=== PATIENT | male | born 1955 | race Caucasian/White ===

== ENCOUNTER → 2020-04-06 09:35 | Outpatient (CLI) | payer MEDICARE ==
[2009-11-17 11:53] VITALS: BMI 28.5
== END | disposition home or self-care (01) ==
LOC: D.CT 09:35
PROVIDERS: ATTEND Internal Medicine Cardiovascular Disease
DX: I70.213 Atherosclerosis of native arteries of extremities with intermittent claudication, bilateral legs (principal)

== ENCOUNTER 2020-05-06 06:35 | Outpatient (CLI) | payer MEDICARE ==
[~2020-05-06] VITALS: Ht 185.4 cm; Wt 97.7 kg
--- NOTE | ~2020-05-06 | HEMODYNAMI ---
PATIENT:ALIX BEY MEDICAL RECORD: [id number] : 53 LOCATION:[facility] ADMISSION DATE: 05/06/20 Generatedon:05/06/202011:38 Patient name: ALIX BEY Patient #: [id number] SSN: DO B: 1955 Date of study: 05/06/2020 Page: Of Hemodynamic Procedure Report Patient Data Patient Demographics Procedure consent was obtained First Name: ALIX Gender: Male Last Name: MAIDA : 1955 Middle Initial: L Age: 64 year(s) Patient #: [id number] Race: Unknown Additional ID: [id number] Contact details Address: [address] [place] [address] ROAD State: [place] City: [place] Zip code: [address] Past Medical History Allergies: No known allergies Admission Admission Data Admission Date: 05/06/2020 Admission Time: 6:35 Procedure Procedure Types Cath Procedure Peripheral Cath Diagnostic Procedure Abd/Extremity Extremities Bilat Lower Extremity Procedure Description Procedure Date Procedure Date: 05/06/2020 Procedure Start Time: 9:38 Procedure Staff Name Function Stanford Joseph MD Performing Physician LANI ORR RT Monitor Horacio Oscar RT Scrub Aster ROBERTS RN Nurse Procedure Data Cath Procedure Fluoroscopy Diagnostic fluoroscopy Total fluoroscopy Time: time: 32.4 min 32.4 min Diagnostic fluoroscopy Total fluoroscopy dose: dose: 2182 mGy 2182 mGy Contrast Material Contrast Material Type Amount (ml) Isovue 300 55 Entry Location Entry Primary Successful Side Size Upsize Upsize Entry Closure Succes sful Closure Location (Fr) 1 (Fr) 2 (Fr) Remarks Device Remarks Femoral Left 5 Fr 6 Fr 6 Fr Exoseal artery Long Short Diagnostic catheters Device Type Used For End Catheter Placement DIAGNOSTIC IMT 5Fr Catheter ([id number]) Procedure Medications Medication Administration Route Dosage Lidocaine 1% added to field 20 Heparin Flush Bag added to field 2 bags (1000units/500ml NS) Heparin Flush Bag added to field 1 bags (1000units/500ml NS) Fentanyl I.V. 50 mcg Versed I.V. 1 mg Fentanyl I.V. 25 mcg Fentanyl I.V. 25 mcg Versed I.V. 0.5 mg Versed I.V. 0.5 mg Heparin Bolus I.V. 5000 units Fentanyl I.V. 25 mcg Versed I.V. 0.5 mg Heparin Bolus I.V. 2000 units Fentanyl I.V. 25 mcg Hemodynamics Rest Heart Rate: 58 (bpm) Snapshots Pre Cath Intra NCS Post Cath Vital Signs Time Heart Resp SPO2 etCO2 NIBP (mmHg) Rhythm Pain Status Sedation Rate (ipm) (%) (mmHg) Level (bpm) 9:24:11 59 17 100 32.4 161/99(135) NSR 0 (11) , No 9(A) pain 9:29:10 58 13 100 33.9 Auto NIBP NSR 0 (11) , No 9(A) off pain 9:34:10 61 17 99 34.6 Auto NIBP NSR 0 (11) , No 9(A) off pain 9:37:08 71 17 99 33.1 145/90(124) NSR 2 (11) , 9(A) Uncomfortable 9:42:07 60 13 98 33.9 Auto NIBP NSR 0 (11) , No 8(A) off pain 9:44:24 62 11 98 27.1 139/97(128) NSR 0 (11) , No 8(A) pain 9:49:23 61 13 99 33.1 Auto NIBP NSR 0 (11) , No 8(A) off pain 9:51:44 59 12 99 31.6 130/91(117) NSR 0 (11) , No 8(A) pain 9:55:52 63 12 98 33.9 138/92(105) NSR 0 (11) , No 8(A) pain 10:00:04 63 11 99 33.9 133/91(107) NSR 0 (11) , No 8(A) pain 10:04:16 60 13 98 33.1 135/85(113) NSR 0 (11) , No 8(A) pain 10:08:28 59 13 99 33.9 131/85(113) NSR 0 (11) , No 8(A) pain 10:12:40 59 13 99 33.9 136/81(106) NSR 0 (11) , No 8(A) pain 10:16:50 60 14 98 33.2 132/89(117) NSR 0 (11) , No 8(A) pain 10:21:00 59 13 98 30.9 138/89(109) NSR 0 (11) , No 8(A) pain 10:25:12 60 12 98 16.5 136/87(115) NSR 0 (11) , No 9(A) pain 10:29:23 57 14 99 34.6 135/86(113) NSR 0 (11) , No 8(A) pain 10:33:38 60 15 98 25.6 119/80(100) NSR 0 (11) , No 8(A) pain 10:37:45 59 14 99 33.1 128/79(106) NSR 0 (11) , No 8(A) pain 10:41:55 59 13 99 12 128/85(101) NSR 0 (11) , No 8(A) pain 10:46:05 60 16 99 26.4 131/81(115) NSR 0 (11) , No 8(A) pain 10:50:17 58 13 99 33.9 131/81(109) NSR 0 (11) , No 8(A) pain 10:54:27 58 13 99 9.8 135/84(108) NSR 0 (11) , No 8(A) pain 10:58:37 62 12 99 36.2 149/87(119) NSR 0 (11) , No 9(A) pain 11:02:51 57 13 99 35.4 158/105(143) NSR 0 (11) , No 9(A) pain 11:07:11 58 13 99 33.9 152/86(113) NSR 0 (11) , No 8(A) pain 11:11:29 58 12 99 11.3 138/85(106) NSR 2 (11) , 8(A) Uncomfortable 11:16:28 56 13 99 34.7 Measuring NSR 0 (11) , No 8(A) pain 11:16:34 56 13 99 34.7 149/89(132) NSR 0 (11) , No 8(A) pain 11:20:50 57 12 98 39.9 145/85(113) NSR 0 (11) , No 8(A) pain 11:25:04 59 12 98 39.9 150/92(121) NSR 0 (11) , No 8(A) pain 11:30:03 61 10 99 37.7 Measuring NSR 0 (11) , No 8(A) pain 11:30:16 60 10 100 36.9 153/94(115) NSR 0 (11) , No 8(A) pain 11:34:31 58 10 99 42.2 159/97(126) NSR 0 (11) , No 9(A) pain Medications Time Medication Route Dose Verified Delivered Reason Notes Effectiveness by by 9:23:46 Lidocaine 1% added 20ml Stanford Coyne for local to vial Jake Joseph MD anesthetic field JORDAN 9:23:55 Heparin Flush added 2 Stanford Coyne used for Bag to bags Jake Joseph MD procedure (1000units/500ml field JORDAN NS) 9:23:57 Heparin Flush added 1 Stanford Coyne used for Bag to bags Jake Joseph MD procedure (1000units/500ml field JORDAN NS) 9:32:47 Fentanyl I.V. 50 Stanford Ayersr for sedation mcg ALEJANDRA Joseph MD RN 9:32:55 Versed I.V. 1 mg Stanford Ayersr for sedation ALEJANDRA Joseph MD RN 9:35:06 Versed I.V. 0.5 Stanford Ayersr for sedation mg ALEJANDRA Joseph MD RN 9:35:39 Fentanyl I.V. 25 Stanford Ayersr for sedation mcg ALEJANDRA Joseph MD RN 9:38:57 Fentanyl I.V. 25 Stanford Ayersr for sedation mcg ALEJANDRA Joseph MD RN 10:27:02 Versed I.V. 0.5 Stanford Minner for sedation mg ALEJANDRA Joseph MD RN 10:27:24 Heparin Bolus I.V. 5000 Stanford Rodarte for units ALEJANDRA Joseph MD RN 10:59:57 Fentanyl I.V. 25 Stanford Ayersr for sedation mcg ALEJANDRA Joseph MD RN 11:00:04 Versed I.V. 0.5 Stanford Ayersr for sedation mg ALEJANDRA Joseph MD RN 11:02:30 Heparin Bolus I.V. 2000 Stanford Rodarte for units ALEJANDRA Joseph MD RN 11:14:08 Fentanyl I.V. 25 Stanford Rodarte for sedation mcg ALEJANDRA Joseph MD wildlife ecologist Log Time Note 8:57:31 Use device set IR Diagnostic 8:57:32 ACIST Syringe (70189) opened to sterile field. 8:57:33 ACIST Hand Control (14001) opened to sterile field. 8:57:34 ACIST Manifold (94485) opened to sterile field. 8:57:34 Bag Decanter (2002S) opened to sterile field. 8:57:35 Sterile Angiographic Pack opened to sterile field. 8:57:35 Tegaderm 4 x 4 (1626W) opened to sterile field. 8:59:45 Angiodynamics Omniflush 5Fr 65cm ([id number]) opened to sterile field. 8:59:45 GLIDE CATHETER 5FR ANGLED 65cm (CG507) opened to sterile field. 8:59:46 TORQUE DEVICE PLASTIC .038 ( TD01) opened to sterile field. 8:59:46 GLIDE WIRE ANGLE 260cm (SR4306) opened to sterile field. 8:59:46 CHOICE PT Extra Support J 300cm guide wire ([id number]) opened to steril e field. 8:59:47 SHEATH 5FR [place] (VCA823) opened to sterile field. 8:59:47 SHEATH 6FR [place] (RSR01) opened to sterile field. 8:59:48 TUBING High Pressure Extension (IABP) opened to sterile field. 8:59:48 DOC .035 wire (A19047) opened to sterile field. 8:59:49 FRITZ 260 wire (R10924) opened to sterile field. 8:59:50 MICROPUNCTURE 4FR [place] (V98133) opened to sterile field. 9:00:07 - 9:00:11 Aster ROBERTS RN sent for patient. Start room use. 9:00:12 Time tracking: Regular hours (M-F 7:00 - 5:00) 9:00:16 Plan of Care:Hemodynamics will remain stable., Cardiac rhythm will remain stable., Comfort level will be maintained., Respiratory function will remain adequate., Patient/ family verbilizes understanding of procedure., Procedure tolerated without complication., Recovers from procedure without complications.. 9:00:29 Patient received from Outpatients to IR Alert and oriented. Tansferred to table in Supine position. 9:00:30 Signed procedure consent form obtained from patient. 9:00:31 Warm blankets applied, and kirk hugger turned on for patient comfort. 9:00:32 Correct patient and procedure confirmed by team. 9:00:32 ECG and BP/O2 sat monitors applied to patient. 9:00:34 - 9:00:39 H&P Date Dictated: 05/06/2020 H&P Addendum completed by physician on day of procedure. (MUST COMPLETE FOR ALL OUTPATIENTS). 9:00:40 Pre-procedure instructions explained to patient. 9:00:41 Pre-op teaching completed and patient verbalized understanding. 9:01:09 Family in waiting room. 9:01:11 Patient NPO since Midnight. 9:01:17 Patient allergic to No known allergies 9:09:05 Is the patient allergic to Iodine/contrast media? No. 9:09:07 Is patient on blood thinner?Yes 9:09:10 ACC The patient was administered the following blood thiners within the last 24 hours: ACCAspirin 9:09:14 Patient diabetic? No. 9:09:16 - 9:09:18 ----Pre-sedation anethsthesia assessment.---- 9:09:20 Previous problem with sedation/anesthesia? No ? 9:10:01 Snore? No 9:10:02 Sleep apnea? No 9:10:03 Deviated septum? No 9:10:05 Opens mouth fully? Yes 9:10:06 Sticks out tongue? Yes 9:10:08 Airway obstruction? No ? 9:10:17 Dentures? No ? 9:10:19 - 9:10:23 Pre procedure: right dorsailis pedis pulse Doppler 9:10:25 Pre procedure: left dorsailis pedis pulse Doppler 9:10:28 Pre procedure: right posterior tibial pulse Doppler 9:10:31 Pre procedure: left posterior tibial pulse Doppler 9:10:49 IV patent on arrival in left hand with 0.9% NaCl at [facility]. 9:11:03 Left groin area was prepped with chlora-prep and draped in sterile fashion 9:11:04 Alarms reviewed by Tiffanie Moore 9:11:05 Sharps counted by scrub and verified by Dominic 9:11:06 - 9:23:01 Vital chart was started 9:23:26 Baseline sample Acquired. 9:23:29 Full Disclosure recording started 9:23:31 - 9:23:46 Lidocaine 1% 20ml vial added to field was administered by Stanford Joseph MD; for local anesthetic; Verbal order read back and verified. 9:23:55 Heparin Flush Bag (1000units/500ml NS) 2 bags added to field was administered by Stanford Joseph MD; used for procedure; Verbal order read back and verified. 9:23:57 Heparin Flush Bag (1000units/500ml NS) 1 bags added to field was administered by Stanford Joseph MD; used for procedure; Verbal order read back and verified. 9:28:00 CXI SUPPORT .035 135 CM STR catheter (E84070) opened to sterile field. 9:29:25 Physician arrived 9:31:16 --------ALL STOP TIME OUT------ 9:31:17 Final Timeout: patient, procedure, and site verified with staff and physician. All members of the team are in agreement. 9:31:19 Left groin site verified by team. 9:31:23 Fire Safety Assessment: A--An alcohol-based skin anteseptic being used preoperatively., C--Open oxygen or nitrous oxide is being used. 9:31:26 2) 60-89 Mildly reduced kidney function, and other findings (as for stage 1) point to kidney disease. 9:31:43 Maximum allowable contrast dose (3.7 X eGFR X 0.75)177.6 ml. 9:31:48 Sedation plan: IV Moderate Sedation Medication:Versed, Fentanyl 9:32:47 Fentanyl 50 mcg I.V. was administered by Aster ROBERTS RN; for sedation; Verbal order read back and verified. 9:32:55 Versed 1 mg I.V. was administered by Aster ROBERTS RN; for sedation; Verbal order read back and verified. 9:35:04 Procedure started. 9:35:06 Versed 0.5 mg I.V. was administered by Aster ROBERTS RN; for sedation; Verbal order read back and verified. 9:35:39 Fentanyl 25 mcg I.V. was administered by Aster ROBERTS RN; for sedation; Verbal order read back and verified. 9:37:32 NITINOL .018 80cm wire (S588645) opened to sterile field. 9:38:35 Local anesthetic to left femerol artery with Lidocaine 1% by Stanford Joseph MD.INITIAL ACCESS ONLY 9:38:57 Fentanyl 25 mcg I.V. was administered by Aster ROBERTS RN; for sedation; Verbal order read back and verified. 9:57:08 Access obtained with 4Fr micropunture. 9:59:40 A 5 Fr sheath was inserted into the Left Femoral artery 10:05:44 ROADRUNNER .035 260 glide wire (J91876) opened to sterile field. 10:06:29 CXI Catheter 90cm (Y18980) opened to sterile field. 10:07:46 A DIAGNOSTIC IMT 5Fr Catheter ([id number]) was opened to sterile field. 10:18:23 GLIDE CATHETER 5FR COBRA 100cm (CG503) opened to sterile field. 10:27:02 Versed 0.5 mg I.V. was administered by Aster ROBERTS RN; for sedation; Verbal order read back and verified. 10:27:24 Heparin Bolus 5000 units I.V. was administered by Aster ROBERTS RN; fo r anticoagulation; Verbal order read back and verified. 10:49:00 Trailblazer 0.035 90cm catheter (ASC-035-090) opened to sterile field. 10:54:01 Sheath upsized to a 6 Fr Long. 10:58:47 INFLATOR BasixTOUCH (QV0127) opened to sterile field. 10:59:57 Fentanyl 25 mcg I.V. was administered by Aster ROBERTS RN; for sedation; Verbal order read back and verified. 11:00:04 Versed 0.5 mg I.V. was administered by Aster ROBERTS RN; for sedation; Verbal order read back and verified. 11:01:41 Inflate balloon Inflation number: 1 A [place] 6 x 100 x 135 Balloon ([id number]) was prepped and advanced across the Undefined1 , then inflated. 11:02:30 Heparin Bolus 2000 units I.V. was administered by Aster ROBERTS RN; fo r anticoagulation; Verbal order read back and verified. 11:08:43 EVERFLEX 8 x 100 Stent ([id number]) was deployed across Undefined1 . 11:14:08 Fentanyl 25 mcg I.V. was administered by Aster ROBERTS RN; for sedation; Verbal order read back and verified. 11:16:45 Inflate balloon Inflation number: 1 A [place] 6 x 4 x 135 Balloon ([id number]) was prepped and advanced across the Undefined2 , then inflated . 11:27:23 Sheath removed intact; hemostasis achieved with Exoseal to the Left Femoral artery. 11:27:23 Sheath upsized to a 6 Fr Short. 11:30:58 Procedure ended.(Physican Out) 11:35:18 Fluoroscopy time 32.40 minutes. 11:35:23 Fluoroscopy dose: 2182 mGy 11:35:23 Flurop Dose total: 2182 11:35:27 Contrast amount:Isovue 300 55ml. 11:35:29 Sharps counted by scrub and verified by R.N. 11:35:31 Insertion/operative site no bleeding no hematoma. 11:35:35 Post-op/insertion site Left Femoral artery dressed using a 4 x 4 and Tegaderm. 11:35:37 Procedure and supply charges have been captured, reviewed, submitted an d are correct. 11:37:32 Vital chart was stopped 11:37:34 See physician's report for complete and final results. 11:37:36 Report given to Outpatients. 11:37:38 End room use (Document Last) Intervention Summary Intervention Notes Time ActionType Lesion and Equipment Used Action# Pressure Duration Attributes 11:01:41 Inflate Undefined1 Evercross 6 x 1 0 00:00 balloon 100 x 135 Balloon ([id number]) 11:08:43 Deploy self Undefined1 EVERFLEX 8 x 1 expanding 100 Stent stent ([id number]) 11:16:45 Inflate Undefined2 Evercross 6 x 4 1 0 00:00 balloon x 135 Balloon ([id number]) Device Usage Item Name Manufacture Quantity Catalog Number Hospital Part Curr ent Minimal Lot# / Charge Number Stock Stock Serial# Code ACIST Syringe Acist Medical 1 60398 152406 194193 0765 75 20 (92549) Systems Inc ACIST Hand Acist Medical 1 89368 998512 998366 2646 06 5 Control (07279) Systems Inc ACIST Manifold Acist Medical 1 13845 637968 544398 6793 22 5 (48289) Systems Inc Bag Decanter Microtek 1 2001S 210755 16577 9841 11 5 () Medical Inc. Sterile Cardinal 1 [id number] 705635 6579 03 5 Angiographic Health Pack Tegaderm 4 x 4 3M 1 1626W 999139 104437 7940 08 5 (1626W) Angiodynamics Angiodynamics 1 64178084 790580 065939 2115 82 5 Omniflush 5Fr 65cm (74221537) GLIDE CATHETER Terumo 1 CG507 452813 1627 92 5 5FR ANGLED 65cm (CG507) TORQUE DEVICE [place] 1 TD01 885472 361164 2307 78 5 PLASTIC .038 ( Scientific TD01) GLIDE WIRE Terumo 1 BP7055 706109 357075 4559 67 5 ANGLE 260cm (NO7037) CHOICE PT Extra [place] 1 [id number] 685013 702128 7244 80 5 Support J 300cm Scientific guide wire (6335155D7) SHEATH 5FR Terumo 1 DFH905 886255 443221 7730 82 5 [place] (INI772) SHEATH 6FR Terumo 1 RSR01 266214 11992 9994 82 5 Destination (RSR01) TUBING [facility] 1 [id number] 786299 600836 4316 85 5 Pressure Extension (IABP) DOC .035 wire [facility] 1 O63163 267891 7273 42 5 (E95092) FRITZ 260 wire [facility] 1 R35849 495557 26705 9994 13 5 (Q43288) MICROPUNCTURE [facility] 1 B19416 269858 185428 3351 66 5 4FR [employer] (N32166) CXI SUPPORT [facility] 1 P77248 976671 985617 0296 58 5 .035 135 CM STR catheter (Q59166) NITINOL .018 Medtronic 1 W046524 629824 9829 67 5 80cm wire (A873595) ROADRUNNER .035 [facility] 1 F82736 090753 018430 7245 32 5 260 glide wire (P85717) CXI Catheter [facility] 1 X38368 442084 234570 6419 72 5 90cm (T24419) DIAGNOSTIC IMT [place] 1 [id number] 810432 183951 2917 6 5 5Fr Catheter Scientific (694947728) GLIDE CATHETER Terumo 1 CG503 898735 4584 81 5 5FR COBRA 100cm (CG503) Trailblazer Medtronic 1 ASC-035-090 995941 7414421 3530 83 5 G058989 0.035 90cm catheter (ASC-035-090) INFLATOR [facility] Medical 1 MQ1538 329046 082580 2924 02 5 BasixTOUCH (AD2002) Ever[place] 6 x Medtronic 1 [id number] 568466 000158 8223 89 5 100 x 135 Balloon ([id number]) EVERFLEX 8 x Medtronic 1 UDR29-53-909-635 698555 192312 3313 97 5 R958862 100 Stent X196155 ([id number]) [place] 6 x 4 Medtronic 1 [id number] 507444 822830 4768 80 5 x 135 Balloon ([id number]) Signature Audit [place] Stage Time Signature Unsigned Intra-Procedure 05/06/2020 LANI ORR RT 11:38:01 AM (R) [id number] [place] [address]
[2020-05-06 07:04] LABS: HEMATOCRIT 48.2 % (42.0-54.0); HEMOGLOBIN 16.6 g/dL (13.5-17.5); LYMPHOCYTES 29.7 % (15-50); MCH 30.2 pg (26.0-34.0); MCHC 34.4 g/dL (31.0-37.0); MCV 87.6 fL (80.0-100.0); MEAN PLATELET VOLUME 9.9 fL (7.4-10.4); NEUTROPHILS 62.4 % (40-80); RDW 14.5 % (11.5-14.5); WBC 9.7 10x3/uL (4.8-10.8)
[2020-05-06 07:16] LABS: PLATELET COUNT 188 10x3/uL (130-400)
[2020-05-06 07:25] LABS: ANION GAP 10.6 mmol/L (8-16); CALCIUM 8.9 mg/dL (8.5-10.1); CARBON DIOXIDE 28.6 mmol/L (21.0-32.0); CREATININE - SERUM 1.2 mg/dL (0.6-1.3); POTASSIUM - SERUM 4.2 mmol/L (3.5-5.1)
[2020-05-06] MEDS ORDERED: PRINIVIL20 MG PO (07:55)
[2020-05-06] MEDS ORDERED: BAYER CHEWABLE81 MG PO (07:56)
[2020-05-06] MEDS ORDERED: NORVASC10 MG PO (07:56)
[2020-05-06 07:57] LABS: APTT 25.6 SECONDS (22.8-39.4); INR 0.98 (0.85-1.17); PROTIME 12.9 SECONDS (11.6-15.0)
[2020-05-06] MEDS ORDERED: MULTIVITAMIN (07:57)
[2020-05-06] MEDS ORDERED: TYLENOL PM1 TAB PO (07:57)
[2020-05-06 08:08] VITALS: Ht 185.4 cm; Wt 97.7 kg
--- NOTE | 2020-05-06 13:24 | NUR ---
1150 ARRIVED TO ROOM AND DRESSING TO LEFT GROIN CDI AREA SOFT. DOPPLER PULSES. STRONGER ON LEFT SIDE THAN RIGHT. AT BEDSIDE. C/O ROOM TOO HOT. PROVIDED A BOX FAN AND WATER. LUNCH TRAY ORDERED FOR PT. ORDERS NOTED AND PT NOT IN ANY PAIN
--- NOTE | 2020-05-06 15:35 | NUR ---
1250 FREQ VS DONE AND PT RESTING WELL. GOOD APPITITE. HUNG SECONG BAG OF FLUIDS AND ENCOURGED PO FLUIDS FOR 24HR. INSTRUCTIONS GIVEN AND DR DOUGHERTY CAME TO SEE PT WITH INSTRUCTIONS ON PLAVIX
--- NOTE | 2020-05-06 15:37 | NUR ---
1500 PT IV REMOVED AND INSTRUCTIONS GIVEN AND D/C HOME WITH
--- NOTE | 2020-05-06 15:37 | NUR ---
1400 SITE TO GROIN SOFT AND DOPPLER PULSES STRONGER
== END 2020-05-06 15:20 | disposition home or self-care (01) ==
LOC: D.SP 06:35 → D.RAD 09:00 → D.SP 09:00
PROVIDERS: ATTEND General Practice
DX: I70.211 Atherosclerosis of native arteries of extremities with intermittent claudication, right leg (principal); I10 Essential (primary) hypertension; Z72.0 Tobacco use

== ENCOUNTER → 2020-05-27 09:50 | Outpatient (CLI) | payer MEDICARE ==
[2020-05-06 08:08] VITALS: BMI 28.4
[~2020-05-27 09:50] MED LIST: BAYER CHEWABLE81 MG PO; MULTIVITAMIN; NORVASC10 MG PO; PRINIVIL20 MG PO; TYLENOL PM1 TAB PO
== END | disposition home or self-care (01) ==
LOC: D.CT 09:50
PROVIDERS: ATTEND General Practice
DX: I70.213 Atherosclerosis of native arteries of extremities with intermittent claudication, bilateral legs (principal)

== ENCOUNTER 2020-06-16 06:30 | Outpatient (CLI) | payer MEDICARE ==
[~2020-06-16] VITALS: Ht 185.4 cm; Wt 99.1 kg
--- NOTE | ~2020-06-16 | HEMODYNAMI ---
PATIENT:ALIX BEY MEDICAL RECORD: [id number] : 53 LOCATION:[facility] ADMISSION DATE: 06/16/20 Generatedon:06/16/202010:24 Patient name: ALIX BEY Patient #: [id number] SSN: DO B: 1955 Date of study: 06/16/2020 Page: Of Hemodynamic Procedure Report Patient Data Patient Demographics Procedure consent was obtained First Name: ALIX Gender: Male Last Name: MAIDA : 1955 Middle Initial: L Age: 64 year(s) Patient #: [id number] Race: Unknown Additional ID: [id number] Contact details Address: [address] [place] [address] ROAD State: [place] City: [place] Zip code: [address] Past Medical History Allergies: No known allergies Admission Admission Data Admission Date: 06/16/2020 Admission Time: 6:30 Procedure Procedure Types Cath Procedure Peripheral Cath Diagnostic Procedure Abd/Extremity Extremities Bilat Lower Extremity Procedure Description Procedure Date Procedure Date: 06/16/2020 Procedure Start Time: 9:40 Procedure End Time: 10:24 Procedure Staff Name Function Stanford Joseph MD Performing Physician LANI ORR RT Monitor Horacio Oscar RT Scrub Aster ROBERTS RN Nurse Jocelyn Cespedes RN Nurse Procedure Data Cath Procedure Fluoroscopy Diagnostic fluoroscopy Total fluoroscopy Time: 8.3 time: 8.3 min min Diagnostic fluoroscopy Total fluoroscopy dose: 436 dose: 436 mGy mGy Contrast Material Contrast Material Type Amount (ml) Isovue 300 45 Entry Location Entry Primary Successful Side Size Upsize Upsize Entry Closure Succes sful Closure Location (Fr) 1 (Fr) 2 (Fr) Remarks Device Remarks Femoral Left 5 Fr Exoseal artery Procedure Medications Medication Administration Route Dosage Lidocaine 1% added to field 20 Heparin Flush Bag added to field 2 bags (1000units/500ml NS) Heparin Flush Bag added to field 2 bags (1000units/500ml NS) Fentanyl I.V. 50 mcg Versed I.V. 1 mg Fentanyl I.V. 25 mcg Versed I.V. 0.5 mg Fentanyl I.V. 25 mcg Versed I.V. 0.5 mg Hemodynamics Rest Heart Rate: 61 (bpm) Snapshots Pre Cath Intra NCS Post Cath Vital Signs Time Heart Resp SPO2 etCO2 NIBP (mmHg) Rhythm Pain Sedation Rate (ipm) (%) (mmHg) Status Level (bpm) 9:12:36 58 14 100 32.9 Measuring NSR 0 (11) 9(A) , No pain 9:13:09 57 19 100 31.4 162/93(138) NSR 0 (11) 9(A) , No pain 9:17:29 57 18 100 31.4 173/98(144) NSR 0 (11) 9(A) , No pain 9:21:49 57 13 99 32.2 154/95(138) NSR 0 (11) 9(A) , No pain 9:26:03 57 14 98 32.9 159/94(133) NSR 0 (11) 9(A) , No pain 9:30:23 56 16 98 32.2 146/91(129) NSR 0 (11) 9(A) , No pain 9:34:35 58 16 98 31.4 152/96(140) NSR 0 (11) 9(A) , No pain 9:38:51 60 21 98 32.2 155/98(128) NSR 0 (11) 9(A) , No pain 9:43:07 63 16 96 32.9 145/112(124) NSR 0 (11) 8(A) , No pain 9:47:21 58 13 97 29.2 149/91(122) NSR 0 (11) 8(A) , No pain 9:51:37 59 12 96 0 151/90(126) NSR 0 (11) 8(A) , No pain 9:55:53 61 11 97 10.4 148/94(137) NSR 0 (11) 8(A) , No pain 10:00:11 58 12 97 26.2 140/83(113) NSR 0 (11) 8(A) , No pain 10:04:23 59 13 97 34.4 149/88(121) NSR 0 (11) 8(A) , No pain 10:08:39 57 14 96 36.6 145/88(118) NSR 0 (11) 8(A) , No pain 10:12:53 59 13 96 36.7 138/93(121) NSR 0 (11) 8(A) , No pain 10:17:52 57 8 99 34.4 Measuring NSR 0 (11) 8(A) , No pain 10:18:05 58 8 98 35.9 138/87(119) NSR 0 (11) 8(A) , No pain 10:22:19 56 13 97 35.2 137/81(106) NSR 0 (11) 8(A) , No pain Medications Time Medication Route Dose Verified Delivered Reason Notes Effe ctiveness by by 9:30:14 Lidocaine 1% added 20ml Stanford Coyne for local to vial Jake Joseph MD anesthetic field 9:30:23 Heparin Flush added 2 Stanford Coyne used for Bag to bags Jake Joseph MD procedure (1000units/500ml field JORDAN NS) 9:30:24 Heparin Flush added 2 Stanford Coyne used for Bag to bags Jake Joseph MD procedure (1000units/500ml field JORDAN NS) 9:39:39 Fentanyl I.V. 50 Stanford Ayersr for mcg Burda, ALEJANDRA sedation RN 9:39:48 Versed I.V. 1 mg Stanford Rodarte for Burda, ALEJANDRA sedation RN 9:41:12 Fentanyl I.V. 25 Stanford Ayersr for mcg Burda, ALEJANDRA sedation MD NAZARIO 9:41:15 Versed I.V. 0.5 Stanford Ayersr for mg Burda, ALEJANDRA sedation RN 10:02:47 Fentanyl I.V. 25 Stanford Ayersr for mcg Burda, ALEJANDRA sedation RN 10:02:51 Versed I.V. 0.5 Stanford Ayersr for mg Burda, ALEJANDRA sedation male model Log Time Note 9:02:05 Aster ROBERTS RN sent for patient. Start room use. 9:02:06 Time tracking: Regular hours (M-F 7:00 - 5:00) 9:02:11 Plan of Care:Hemodynamics will remain stable., Cardiac rhythm will remain stable., Comfort level will be maintained., Respiratory function will remain adequate., Patient/ family verbilizes understanding of procedure., Procedure tolerated without complication., Recovers from procedure without complications.. 9:02:16 Patient received from Outpatients to IR Alert and oriented. Tansferred to table in Supine position. 9:02:18 Signed procedure consent form obtained from patient. 9:02:18 Warm blankets applied, and kirk hugger turned on for patient comfort. 9:02:19 Correct patient and procedure confirmed by team. 9:02:19 ECG and BP/O2 sat monitors applied to patient. 9:02:20 - 9:02:25 H&P Date Dictated: 06/16/2020 H&P Addendum completed by physician on day of procedure. (MUST COMPLETE FOR ALL OUTPATIENTS). 9:02:26 Pre-procedure instructions explained to patient. 9:02:26 Pre-op teaching completed and patient verbalized understanding. 9:02:28 Family in waiting room. 9:02:30 Patient NPO since Midnight. 9:02:36 Patient allergic to No known allergies 9:02:39 Is the patient allergic to Iodine/contrast media? No. 9:02:57 Patient diabetic? No. 9:03:04 Is patient on blood thinner?Yes 9:03:12 ACC The patient was administered the following blood thiners within the last 24 hours: ACCAspirin, ACCPlavix 9:03:16 - 9:03:17 ----Pre-sedation anethsthesia assessment.---- 9:03:19 Previous problem with sedation/anesthesia? No ? 9:03:21 Snore? No 9:03:22 Sleep apnea? No 9:03:23 Deviated septum? No 9:03:25 Opens mouth fully? Yes 9:03:26 Sticks out tongue? Yes 9:03:28 Airway obstruction? No ? 9:03:32 Dentures? No ? 9:03:33 - 9:03:43 IV patent on arrival in right forearm with 0.9% NaCl at KVO. 9:03:50 Alarms reviewed by R. N. 9:03:51 Sharps counted by scrub and verified by R.N. 9:03:58 Bilateral groins area was prepped with chlora-prep and draped in steril e fashion 9:04:02 Use device set IR Diagnostic 9:04:03 ACIST Syringe (25865) opened to sterile field. 9:04:04 ACIST Hand Control (03467) opened to sterile field. 9:04:04 ACIST Manifold (45663) opened to sterile field. 9:04:04 Bag Decanter (2002S) opened to sterile field. 9:04:05 Sterile Angiographic Pack opened to sterile field. 9:04:05 Tegaderm 4 x 4 (1626W) opened to sterile field. 9:05:13 Angiodynamics Omniflush 5Fr 65cm ([id number]) opened to sterile field. 9:05:14 GLIDE CATHETER 5FR ANGLED 65cm (CG507) opened to sterile field. 9:05:14 FRITZ 260 wire (S66002) opened to sterile field. [facility]:05[facility] glide wire (C20152) opened to sterile field. 9:05:15 MICROPUNCTURE 4FR Cook (J70369) opened to sterile field. 9:05:16 SHEATH 5FR [place] (RQG675) opened to sterile field. 9:05:16 DOC .035 wire (P74252) opened to sterile field. 9:05:17 TUBING High Pressure Extension (IABP) opened to sterile field. 9:05:21 - 9:10:46 Vital chart was started 9:10:49 Baseline sample Acquired. 9:28:59 Full Disclosure recording started 9:29:02 - 9:30:14 Lidocaine 1% 20ml vial added to field was administered by Stanford Joseph MD; for local anesthetic; Verbal order read back and verified. 9:30:23 Heparin Flush Bag (1000units/500ml NS) 2 bags added to field was administered by Stanford Joseph MD; used for procedure; Verbal order read back and verified. 9:30:24 Heparin Flush Bag (1000units/500ml NS) 2 bags added to field was administered by Stanford Joseph MD; used for procedure; Verbal order read back and verified. 9:32:41 - 9:37:34 Physician arrived 9:37:35 --------ALL STOP TIME OUT------ 9:37:36 Final Timeout: patient, procedure, and site verified with staff and physician. All members of the team are in agreement. 9:37:38 Bilateral groins site verified by team. 9:37:41 Fire Safety Assessment: A--An alcohol-based skin anteseptic being used preoperatively., C--Open oxygen or nitrous oxide is being used. 9:37:50 2) 60-89 Mildly reduced kidney function, and other findings (as for stage 1) point to kidney disease. 9:38:11 Maximum allowable contrast dose (3.7 X eGFR X 0.75)197.02 ml. 9:39:39 Fentanyl 50 mcg I.V. was administered by Aster ROBERTS RN; for sedation; Verbal order read back and verified. 9:39:48 Versed 1 mg I.V. was administered by Aster ROBERTS RN; for sedation; Verbal order read back and verified. 9:40:11 Procedure started. 9:40:15 Local anesthetic to left femerol artery with Lidocaine 1% by Stanford Joseph MD.INITIAL ACCESS ONLY 9:41:12 Fentanyl 25 mcg I.V. was administered by Aster ROBERTS RN; for sedation; Verbal order read back and verified. 9:41:15 Versed 0.5 mg I.V. was administered by Aster ROBERTS RN; for sedation; Verbal order read back and verified. 9:42:56 Access obtained with 4Fr micropunture. 9:43:04 A 5 Fr sheath was inserted into the Left Femoral artery 10:02:47 Fentanyl 25 mcg I.V. was administered by Aster ROBERTS RN; for sedation; Verbal order read back and verified. 10:02:51 Versed 0.5 mg I.V. was administered by Aster ROBERTS RN; for sedation; Verbal order read back and verified. 10:04:29 NITINOL .014 300cm wire ([id number]) opened to sterile field. 10:11:11 Sheath removed intact; hemostasis achieved with Exoseal to the Left Femoral artery. 10:11:20 EXOSEAL 5Fr (EX500) opened to sterile field. 10:20:31 Procedure ended.(Physican Out) 10:20:37 Fluoroscopy time 08.30 minutes. 10:20:41 Fluoroscopy dose: 436 mGy 10:20:41 Flurop Dose total: 436 10:20:46 Contrast amount:Isovue 300 45ml. 10:20:57 Maximum allowable dose exceeded? No. 10:21:09 Post right femoral artery:stable, soft, clean and dry 10:21:11 Post procedure instruction explained to patient.Patient verbalizes understanding. 10:21:12 Procedure and supply charges have been captured, reviewed, submitted an d are correct. 10:24:04 Vital chart was stopped 10:24:06 See physician's report for complete and final results. 10:24:08 Procedure ended. 10:24:08 Full Disclosure recording stopped Device Usage Item Name Manufacture Quantity Catalog Number Hospital Part Current Mo nimal Lot# / Charge Number Stock Stock Serial# Code ACIST Syringe Acist Medical 1 18253 [id number] [id number] 207193 20 (19782) Systems Inc ACIST Hand Acist Medical 1 41382 592786 248020 157995 5 Control Systems Inc (64949) ACIST Acist Medical 1 04604 466825 932587 330467 5 Manifold Systems Inc (99413) Bag Decanter Microtek 1 2002S 340377 77668 231494 5 (2001S) Medical Inc. Sterile Cardinal 1 [id number] 649319 959300 5 Angiographic Health Pack Tegaderm 4 x 3M 1 1626W 801142 576930 144882 5 4 (1626W) Angiodynamics Angiodynamics 1 [id number] 234286 891961 341350 5 Omniflush 5Fr 65cm (24176086) GLIDE Terumo 1 CG507 640903 781949 5 CATHETER 5FR ANGLED 65cm (CG507) FRITZ 260 [facility] 1 U78067 002616 40099 389996 5 wire (A91614) ROAD[facility]NER [facility] 1 X53911 622810 114456 163239 5 .035 260 glide wire (G15319) MICROPUNCTURE [facility] 1 B55794 948126 875068 274043 5 4FR Cook (R25377) SHEATH 5FR Terumo 1 MUW281 149325 399382 529938 5 [place] (OKZ644) DOC .035 wire [facility] 1 H00175 200821 366973 5 (J64419) TUBING [facility] 1 [id number] 865675 490344 089776 5 Pressure Extension (IABP) NITINOL .014 Medtronic 1 [id number] 337390 710911 5 300cm wire (P635420) EXOSEAL 5Fr Cardinal 1 EX500 010382 050362 327156 10 (EX500) Health Signature Audit [place] Stage Time Signature Unsigned Intra-Procedure 06/16/2020 LANI ORR RT 10:24:35 AM (R) [facility] [address] [place] [address]
[2020-06-16 06:57] LABS: BASOPHILS 0.3 % (0-2); EOSINOPHILS 5.7 % (0-7); HEMATOCRIT 44.2 % (42.0-54.0); IMMATURE GRANULOCYTES 0.1 % (0-5); LYMPHOCYTES 30.2 % (15-50); MCH 30.2 pg (26.0-34.0); MCHC 33.9 g/dL (31.0-37.0); MCV 89.1 fL (80.0-100.0); MEAN PLATELET VOLUME 10.6 fL (7.4-10.4); MONOCYTES 5.9 % (2-11); NEUTROPHILS 57.8 % (40-80); PLATELET COUNT 162 10x3/uL (130-400); RBC 4.96 10x6/uL (4.20-6.10); RDW 13.5 % (11.5-14.5); WBC 7.3 10x3/uL (4.8-10.8)
[2020-06-16 07:11] LABS: APTT 25.1 SECONDS (22.8-39.4); INR 1.02 (0.85-1.17); PROTIME 13.3 SECONDS (11.6-15.0)
[2020-06-16 07:22] LABS: ANION GAP 14.8 mmol/L (8-16); CALCIUM 8.6 mg/dL (8.5-10.1); CARBON DIOXIDE 23.3 mmol/L (21.0-32.0); CREATININE - SERUM 1.1 mg/dL (0.6-1.3); POTASSIUM - SERUM 4.1 mmol/L (3.5-5.1)
[2020-06-16] MEDS ORDERED: PLAVIX75 MG PO (07:27)
[2020-06-16 07:29] VITALS: Ht 185.4 cm; Wt 99.1 kg
--- NOTE | 2020-06-16 14:32 | NUR ---
1039 VITAL SIGNS BEING RECORDED ON POST PROCEDURE FORM AND PART OF THE PAPER CHART. 1325 IV DC'D. CATHETER TIP INTACT. NO BLEEDING AT SITE. BANDAID APPIED. 1337 DR DOUGHERTY HERE TO UPDATE PT ON PROCEDURE FINDINGS AND PLAN OF CARE. 1345 PT READY FOR DISCHARGE AND VOICES UNDERSTANDING OF DISCHARGE INSTRUCTIONS.
== END 2020-06-16 13:45 | disposition home or self-care (01) ==
LOC: D.SP 06:30 → D.RAD 09:00 → D.SP 09:00
PROVIDERS: ATTEND General Practice
DX: I70.211 Atherosclerosis of native arteries of extremities with intermittent claudication, right leg (principal); Z72.0 Tobacco use

== ENCOUNTER 2020-07-18 05:28 | Day surgery (SDC) | payer MEDICARE ==
[~2020-07-18] VITALS: Ht 185.4 cm; Wt 99.8 kg
--- NOTE | ~2020-07-18 | HEMODYNAMI ---
PATIENT:ALIX BEY MEDICAL RECORD: [id number] : 53 LOCATION:MICHELLE ADMISSION DATE: 07/18/20 Generatedon:07/18/202010:02 Patient name: ALIX BEY Patient #: [id number] SSN: DO B: 1955 Date of study: 07/18/2020 Page: Of Hemodynamic Procedure Report Patient Data Patient Demographics Procedure consent was obtained First Name: ALIX Gender: Male Last Name: MAIDA : 1955 Middle Initial: L Age: 64 year(s) Patient #: [id number] Race: Unknown Additional ID: [id number] Contact details Address: [address] [place] [address] ROAD State: [place] City: [place] Zip code: [address] Past Medical History Allergies: No known allergies Admission Admission Data Admission Date: 07/18/2020 Admission Time: 5:28 Height (in.): 73 BSA: 2.24 (m2) Height (cm.): 185.42 BMI: 28.89 (kg/m2) Weight (lbs.): 219 Weight (kg.): 99.34 Procedure Procedure Types Cath Procedure 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 Peripheral Procedures Abd/Extremity Extremities Bilat Lower Extremity Procedure Description Procedure Date Procedure Date: 07/18/2020 Procedure Start Time: 8:31 Procedure Staff Name Function Stanford Joseph MD Performing Physician Eloise Rodriguez RT Industrial Electrical Engineer Casey Xiao MD Additional personnel Horacio Oscar RT Scrub Aster ROBERTS RN Nurse Procedure Data Cath Procedure Fluoroscopy Diagnostic fluoroscopy Total fluoroscopy Time: time: 13.8 min 13.8 min Diagnostic fluoroscopy Total fluoroscopy dose: 662 dose: 662 mGy mGy Contrast Material Contrast Material Type Amount (ml) Isovue 300 155 Entry Location Entry Primary Successful Side Size Upsize Upsize Entry Closure Succes sful Closure Location (Fr) 1 (Fr) 2 (Fr) Remarks Device Remarks Femoral Left Exoseal artery Procedure Medications Medication Administration Route Dosage Lidocaine 1% added to field 20 Heparin Flush Bag added to field 2 bags (1000units/500ml NS) Heparin Flush Bag added to field 1 bags (1000units/500ml NS) Heparin Bolus I.V. 5000 units Nitroglycerin IC/IA I.A. 300 mcg Hemodynamics Rest BSA: 2.24 (m2) O2 Consumption: Estimated: 304.64 (ml/min) O2 Consumption indexed : Estimated:136 (ml/min/m) Pre Cath Intra NCS Post Cath Medications Time Medication Route Dose Verified Delivered Reason Notes Effectiveness by by 8:34:46 Lidocaine 1% added 20ml Stanford Coyne for local to vial Jake Joseph MD anesthetic field 8:35:03 Heparin Flush added 2 Stanford Coyne used for Bag to bags Jake Joseph MD procedure (1000units/500ml field NS) 8:35:05 Heparin Flush added 1 Stanford Coyne used for Bag to bags Jake Joseph MD procedure (1000units/500ml field NS) 9:05:07 Heparin Bolus I.V. 5000 Stanford Rodarte for units RONNI JosephCA anticoagulation RN 9:53:23 Nitroglycerin I.A. 300 Stanford Coyne for IC/IA mcg Jake Joseph MD vasodilation Procedure Log Time Note 7:51:03 Patient Height : 73 inches 7:51:08 Patient Weight : 219 lbs 7:51:36 Time tracking: Regular hours (M-F 7:00 - 5:00) 7:51:50 - 7:51:59 Use device set IR Diagnostic 7:52:36 Micropuncture VSI 4FR kit opened to sterile field. 7:52:36 FRITZ 260 wire (V25376) opened to sterile field. 7:52:37 DOC .035 wire (F74286) opened to sterile field. 7:52:38 Tegaderm 4 x 4 (1626W) opened to sterile field. 7:52:40 Sterile Angiographic Pack opened to sterile field. 7:52:41 Bag Decanter () opened to sterile field. 7:52:42 ACIST Manifold (72051) opened to sterile field. 7:52:43 ACIST Hand Control (79622) opened to sterile field. 7:52:44 ACIST Syringe (23387) opened to sterile field. 7:53:06 TUBING Contrast Injection High Pressure (GDY550U) opened to sterile field. 7:53:28 - 7:53:36 Plan of Care:Hemodynamics will remain stable., Cardiac rhythm will remain stable., Comfort level will be maintained., Respiratory function will remain adequate., Patient/ family verbilizes understanding of procedure., Procedure tolerated without complication., Recovers from procedure without complications.. 7:53:43 Patient received from Outpatients to IR Alert and oriented. Tansferred to table in Supine position. 7:53:50 Signed procedure consent form obtained from patient. 7:53:58 H&P Date Dictated: 07/18/2020 Within 30 days and on chart., H&P Addendum completed by physician on day of procedure. (MUST COMPLETE FOR ALL OUTPATIENTS). 7:54:00 Pre-procedure instructions explained to patient. 7:54:01 Pre-op teaching completed and patient verbalized understanding. 7:54:10 Family unavailable. 7:54:13 Patient NPO since Midnight. 7:54:28 Patient allergic to No known allergies 7:54:33 Patient diabetic? No. 7:54:37 Is the patient allergic to Iodine/contrast media? No. 7:54:54 - 7:54:58 ----Pre-sedation anethsthesia assessment.----see anesthesia notes for monitoring of patient during procedure 8:20:02 Cordis 5Fr BRITE TIP 11cm sheath opened to sterile field. 8:20:31 Left groin area was prepped with chlora-prep and draped in sterile fashion 8:20:34 TORQUE DEVICE PLASTIC .038 ( TD01) opened to sterile field. 8:20:35 GLIDE CATHETER 5FR ANGLED 65cm (CG507) opened to sterile field. 8:20:36 GLIDE WIRE ANGLE 260cm (UA3609) opened to sterile field. 8:30:14 - 8:30:17 Physician arrived 8:30:18 --------ALL STOP TIME OUT------ 8:30:19 Final Timeout: patient, procedure, and site verified with staff and physician. All members of the team are in agreement. 8:30:38 Fire Safety Assessment: A--An alcohol-based skin anteseptic being used preoperatively., C--Open oxygen or nitrous oxide is being used. 8:30:47 3a) 45-59 Moderately reduced kidney function. 8:31:04 Procedure started. 8:31:04 Full Disclosure recording started 8:31:09 Local anesthetic to left femerol artery with Lidocaine 1% by Stanford Joseph MD.INITIAL ACCESS ONLY 8:31:13 Arterial access obtained using ultrasound guidance. 8:34:46 Lidocaine 1% 20ml vial added to field was administered by Stanford Joseph MD; for local anesthetic; Verbal order read back and verified. 8:35:03 Heparin Flush Bag (1000units/500ml NS) 2 bags added to field was administered by Stanford Joseph MD; used for procedure; Verbal order read back and verified. 8:35:05 Heparin Flush Bag (1000units/500ml NS) 1 bags added to field was administered by Stanford Joseph MD; used for procedure; Verbal order read back and verified. 8:38:39 AMPLATZ Super Stiff 75cm wire ([id number]) opened to sterile field. 8:47:58 ----Pre-sedation anethsthesia assessment.---- 8:54:30 Micropuncture VSI 4FR kit opened to sterile field. 8:54:52 SHEATH 6FR Brite Tip 35cm (261899L) opened to sterile field. 8:55:08 Pre procedure: right dorsailis pedis pulse Doppler 8:55:11 Pre procedure: left dorsailis pedis pulse Doppler 8:55:14 Pre procedure: right posterior tibial pulse Doppler 8:55:17 Pre procedure: left posterior tibial pulse Doppler 9:02:50 Hawkone Medium Atherectomy System (H1-M) opened to sterile field. 9:02:59 CHOICE PT Extra Support J 300cm guide wire ([id number]) opened to steril e field. 9:05:07 Heparin Bolus 5000 units I.V. was administered by Aster ROBERTS RN; fo r anticoagulation; Verbal order read back and verified. 9:17:31 INFLATOR BasixTOUCH (VD8206) opened to sterile field. 9:53:23 Nitroglycerin IC/IA 300 mcg I.A. was administered by Stanford Joseph MD; fo r vasodilation; Verbal order read back and verified. 9:55:03 EXOSEAL 6Fr (EX600) opened to sterile field. 9:55:23 A sheath was inserted into the Left Femoral artery 9:55:23 Sheath removed intact; hemostasis achieved with Exoseal to the Left Femoral artery. 9:57:00 Fluoroscopy time 13.80 minutes. 9:57:04 Fluoroscopy dose: 662 mGy 9:57:04 Flurop Dose total: 662 9:57:11 Contrast amount:Isovue 300 155ml. 10:01:13 Procedure ended.(Physican Out) 10:01:37 Procedure and supply charges have been captured, reviewed, submitted an d are correct. 10:01:46 Report given to Recovery Room. Device Usage Item Name Manufacture Quantity Catalog Number [facility] Part Current [facility] Lot# / Charge Number Stock Stock Serial# Code Micropuncture VSI VASCULAR 2 [id number] [id number] 766718 5 VSI 4FR kit SOLUTIONS FRITZ 260 [employer] [facility] 1 [id number] 502490 93874 844532 5 wire (H07533) DOC .035 wire [employer] [facility] 1 C63189 517087 136364 5 (K78279) Tegaderm 4 x 3M 1 1626W 897891 751104 040668 5 4 (1626W) Sterile Cardinal 1 [id number] 304064 326705 5 Angiographic Health Pack Bag Decanter Microtek 1 2001S 556512 98730 452683 5 (2001S) Medical Inc. ACIST Acist 1 25983 685096 513431 914163 5 Manifold Medical (08391) Systems Inc ACIST Hand Acist 1 12335 977654 389891 640306 5 Control Medical (78258) Systems Inc ACIST Syringe Acist 1 87559 325990 176676 463657 20 (19751) Medical Systems Inc TUBING Merit 1 [id number] 761870 855108 551869 5 Contrast Medical Injection High Pressure (SVK785I) Cordis 5Fr Cardinal 1 [id number] 807870 911984 5 BRITE TIP Health 11cm sheath TORQUE DEVICE [place] 1 TD01 333743 467757 124338 5 PLASTIC .038 Scientific ( TD01) GLIDE Terumo 1 CG507 526607 851297 5 CATHETER 5FR ANGLED 65cm (CG507) GLIDE WIRE Terumo 1 UU4012 384866 708940 005129 5 ANGLE 260cm (BZ6290) AMPLATZ Super [place] 1 [id number] 936228 042739 058547 5 Stiff 75cm Scientific wire ([id number]) SHEATH 6FR Cardinal 1 [id number] 177631 258153 522181 1 Brite Tip Health 35cm (228416D) Hawkone Medtronic 1 H1-M 887524 65772712 5 Medium Atherectomy System (H1-M) CHOICE PT [place] 1 [id number] 630037 249571 209865 5 Extra Support Scientific J 300cm guide wire (0076330C3) INFLATOR [facility] 1 ZT4970 276931 709008 923528 5 BasixOpenbuilds Medical (NO6612) EXOSEAL 6Fr Cardinal 1 EX600 124938 402573 043638 10 (EX600) Health Signature Audit [place] Stage Time Signature Unsigned Intra-Procedure 07/18/2020 Eloise Rodriguez 10:02:26 AM RT(R) [facility] [address] [place] [address]
[~2020-07-18 05:28] MED LIST changes: +PLAVIX75 MG PO
[2020-07-18 06:13] LABS: BASOPHILS 0.2 % (0-2); EOSINOPHILS 6.1 % (0-7); HEMATOCRIT 47.4 % (42.0-54.0); HEMOGLOBIN 15.9 g/dL (13.5-17.5); IMMATURE GRANULOCYTES 0.3 % (0-5); LYMPHOCYTES 38.7 % (15-50); MCH 30.4 pg (26.0-34.0); MCHC 33.5 g/dL (31.0-37.0); MCV 90.6 fL (80.0-100.0); MEAN PLATELET VOLUME 10.7 fL (7.4-10.4); MONOCYTES 7.2 % (2-11); NEUTROPHILS 47.5 % (40-80); PLATELET COUNT 162 10x3/uL (130-400); RBC 5.23 10x6/uL (4.20-6.10); RDW 13.6 % (11.5-14.5); WBC 6.4 10x3/uL (4.8-10.8)
[2020-07-18 06:17] LABS: APTT 25.6 SECONDS (22.8-39.4); INR 0.99 (0.85-1.17)
[2020-07-18 06:23] LABS: ANION GAP 15.5 mmol/L (8-16); CALCIUM 8.8 mg/dL (8.5-10.1); CARBON DIOXIDE 22.5 mmol/L (21.0-32.0); CREATININE - SERUM 1.3 mg/dL (0.6-1.3)
[2020-07-18 06:28] VITALS: BP 137/95; Ht 185.4 cm; Wt 99.8 kg
--- NOTE | 2020-07-18 13:35 | NUR ---
LEFT GROIN CONTINUES TO BE SOFT, NONTENDER, NO SIGNS OF HEMATOMA OR BLEEDING. PIV DC'D WITH TIP INTACT. PATIENT AMBULATES TO BATHROOM WITHOUT DIZZINESS OR UNSTEADINESS. 4457 DISCHARGE INSTRUCTIONS REVIEWED WITH PATIENT AND SON. DISCHARGED HOME VIA WHEELCHAIR TO PRIVATE VEHICLE WITH SON
== END 2020-07-18 13:45 | disposition home or self-care (01) ==
LOC: D.SP 05:28 → D.RAD 08:00 → EDSTATUS 08:00 → D.SP 13:45
PROVIDERS: ATTEND General Practice
DX: I70.202 Unspecified atherosclerosis of native arteries of extremities, left leg (principal)